=== PATIENT | female | born 2005 | race Caucasian/White ===

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

== ENCOUNTER 2025-04-07 13:42 | Emergency (ER) | payer OTHER, SELFPAY ==
[2025-04-07 13:50] VITALS: BP 124/80; PULSE 72; RESP 16; TEMP 36.4; O2SAT 98
--- OUTSIDE RECORDS SUMMARY | 2025-04-07 14:45 | XMS_ITS | Clinical Summary ---
Author Organization [facility] Address [address] [place] [address] Phone Care Team Providers Care Advance Agent Name Role Phone Jerod Sanchez MD, Kristin Primary Care Provider [phone] Allergies No known active allergies Medications triamcinolone [...] 2-dose series) 12/24/2022 06/26/2022 Influenza Immunization (#1) 2025 SARS-COV-2 Immunization ( season) 2025 Respiratory Syncytial Virus (RSV) Immunization (Adult) [...] age to complete this topic Insurance MEDICAID [facility] MEDICAID [facility] [employer] Care Teams Advance Agent Relationship Specialty Start Date End Date Eden Newsome MD [address] [address] PCP - General Pediatrics 03/19/22
--- OUTSIDE RECORDS SUMMARY | 2025-04-07 16:25 | XMS_ITS | Clinical Summary ---
Author Organization [facility] Address [address] [place] [address] Phone Care Team Providers Care Mine Car Mechanic Name Role Phone Jerod Sanchez MD, Kristin Primary Care Provider [phone] Allergies No known active allergies Medications triamcinolone [...] age to complete this topic Insurance MEDICAID [facility] MEDICAID [facility] [employer] [facility] [employer] Care Teams Mine Car Mechanic Relationship Specialty Start Date End Date Eden Newsome MD [address] [place] [address] [address] PCP - General Pediatrics 03/19/22
--- NOTE | 2025-04-28 18:08 | ED.EYEPROB ---
HPI - Eye Problem General Chief complaint: Eye Problems Stated complaint: eye issues Time Seen by Provider: 04/07/25 15:49 History of Present Illness HPI Narrative: Patient presents with intermittent chronic pain of the skin around her left eye that she wanted to get ?checked out? today since she was bringing her son in for evaluation. Patient reports trauma to this part of her face several years prior and has had intermittent burning since then. She has no changes in vision, no rash, no visible skin changes. She denies any recent trauma to eye. Patient has a history of chronic migraines and is followed by Neurology. No acute changes to her symptoms. She is otherwise healthy. Immunizations up-to-date. Related Data Home Medications ?Medication ?Instructions ?Recorded ?Confirmed ?Last Taken ?Type epinephrine 0.3 mg/0.3 mL 0.3 mg subcut Q4H PRN anaphylaxis 03/18/24 03/09/25 Unknown History injection, auto-injector Allergies Allergy/AdvReac Type Severity Reaction Status Date / Time omalizumab (From Xolair) Allergy Severe Swelling Verified 04/07/25 13:44 Review of Systems Review of Systems: All systems reviewed & are unremarkable except as noted in HPI and below (HPI) PMFSH Past Medical History Medical History Normal vaginal delivery of first 11/10/24 Suppression of menses Migraine Anxiety Allergies Surgical History Surgical History Status post surgical removal of malignant neoplasm of skin Family History Family History Father Alcohol abuse Depression Heart disease Hypertension Sibling Alcohol abuse Asthma Depression Diabetes mellitus Thyroid disorder Grandparent Alcohol abuse Asthma Depression Diabetes mellitus Heart disease Hypertension Cerebrovascular accident Breast cancer Stomach cancer Mother Asthma Heart disease Hypertension Lung cancer Basal cell carcinoma Social History Social History Smoking status: Current some day smoker Tobacco type: e-cigarettes/vaping Alcohol intake: former Alcohol use details: rarely Substance use: current Substance use type: marijuana Lack of Transportation: No Lack of Food: Never True Current Housing: I Have Housing Concerned About Future Housing: No Difficulty Paying Gas/Electric Bills: No Difficulty Paying for Meds: Decline to Answer Currently Unemployed: YES Education: Grade School Difficulty w/ Childcare or Family Care: No Living arrangements: with family Occupation/Education: unemployed Gender identity (if verbalized by the patient): Female Sexual Orientation (if Verbalized by the Patient): pansexual Spiritual care concerns: No Exam Narrative: GENERAL: No acute distress. Well-appearing. Well-nourished. Alert and active. HEAD: Normocephalic, atraumatic. EYES: Pupils equal, round reactive to light. Extraocular movements intact. Conjunctivae without redness or drainage. EARS: Tympanic membranes without erythema. TM landmarks intact with good light reflex. Ear canals without discharge. NOSE: Nares patent. No nasal discharge. MOUTH: Mucous membranes moist. No lesions. No cyanosis. Dentition grossly normal. THROAT: Oropharynx without signs erythema, exudates or lesions. Tonsils not enlarged. RESPIRATORY: Airway patent. Chest clear to auscultation bilaterally. Breath sounds equal bilaterally. No retractions. CARDIOVASCULAR: Regular rate and rhythm. No murmurs, rubs, gallops, or clicks. Capillary refill <2 seconds. GASTROINTESTINAL: Soft, nontender, non-distended MUSCULOSKELETAL: Range of motion grossly normal in all four extremities. Strength grossly normal in all four extremities. No edema. SKIN: Color normal. Warm and dry. No rashes. NEURO: Alert. Motor intact in all extremities. Muscle tone normal. PSYCHIATRIC: Age appropriate. Responds appropriately to care-taker and providers. Course Vital Signs Vital signs: Vital Signs Temperature 97.6 F 04/07/25 13:50 Pulse Rate 72 04/07/25 13:50 Respiratory Rate 16 04/07/25 13:50 Blood Pressure 124/80 04/07/25 13:50 Pulse Oximetry 98 04/07/25 13:50 Temperature 97.6 F 04/07/25 13:50 Pulse Rate 72 04/07/25 13:50 Respiratory Rate 16 04/07/25 13:50 Blood Pressure 124/80 04/07/25 13:50 Pulse Oximetry 98 04/07/25 13:50 [facility] MDM Narrative Medical decision making narrative: 19-year-old female presents with chronic intermittent superficial pain around skin of left eye after local trauma to that area. She denies any associated pain of eye, vision changes, pain with ocular movements, skin changes. Suspect intermittent burning sensation when touched secondary to minor superficial cutaneous nerve damage during trauma. No red flag symptoms for intracranial or intra-ocular injury or pathology at this time. Patient to follow-up with neurologist. The patient is stable at time of discharge the clinical impression was discussed and the parent guardian was given the opportunity to ask questions, which were addressed as completely as possible given the information available at present. Anticipatory guidance and return to care precautions were discussed and the importance of primary care follow-up was stressed and encouraged. The guardian voiced understanding of the plan, indications to return, and the need for follow-up. Differential Diagnosis Differential Diagnosis: Nerve pain Discharge Plan Discharge Clinical Impression: Chronic facial pain Patient Disposition: Home Condition: Stable Additional Instructions: You were seen today for pain in the cheek that has been present for over a year. Your exam today was normal. It is possible you have a minor injury to the nerves in the skin of the face following trauma. Please follow up with your doctor CHANEL. Return to ER if symptoms worsen or you develop any numbness, weakness, facial drooping, eye pain, difficulty speaking, or other symptoms. Patient Language: Spanish Prescriptions: No Action drospirenone-ethinyl estradiol [DIANNE (28)] 3-0.02 mg tablet 1 tablet PO DAILY Qty: 84 3RF epinephrine 0.3 mg/0.3 mL auto-injector 0.3 mg subcut Q4H PRN (Reason: anaphylaxis) Follow-up/Referrals: PHYSICIAN,[employer] P[employer]ER MACHINE OPERATOR [Primary Care Provider, Internal Medicine]
== END 2025-04-07 16:50 | disposition home or self-care (01) ==
LOC: ANHED 16:24
PROVIDERS: Emergency Provider Student in an Organized Health Care Education/Training Program
DX: R51.9 Headache, unspecified (principal); G89.21 Chronic pain due to trauma; F17.290 Nicotine dependence, other tobacco product, uncomplicated; Z79.3 Long term (current) use of hormonal contraceptives
CPT/HCPCS: 99283

== ENCOUNTER 2025-05-23 14:44 | Emergency (ER) | payer OTHER, SELFPAY ==
--- NOTE | ~2025-05-23 | XR_ITS ---
EXAMINATION: XR chest 2V DATE: 05/23/2025 15:16 INDICATION: Hemoptysis. TECHNIQUE: Frontal and lateral views of the chest were obtained. COMPARISON: CTA chest dated 11/13/2024. FINDINGS: Heart size is normal. Lungs are clear of acute process. Audrey and mediastinum are normal. IMPRESSION: 1. No acute findings. Reviewed, dictated and finalized at location T. LABORER IMPRESSION: 1. No acute findings.
[2025-05-23 14:47] VITALS: BP 134/75; PULSE 105; RESP 20; TEMP 36.2; O2SAT 99
--- NOTE | 2025-05-23 14:49 | ED_ITS ---
HPI - URI/Sore Throat General Chief Complaint: Upper Respiratory Infection Stated Complaint: URI sx Time Seen by Provider: 05/23/25 14:49 Focused HPI: Patient is a 19-year-old female who presents to the ER with a 2 day history of chest discomfort, jaw/neck pain, congestion, hemoptysis, and fever. She reports she has not been taking any medication to help relieve her symptoms, as I do not have access to that stuff. Patient denies any medical history relevant to this ER visit. She denies any shortness of breath, wheezing, or difficulty swallowing. GENERAL: Well-appearing, well-nourished, and in no acute distress. HEAD: Normocephalic, atraumatic. CHEST: Clear to auscultation. ?No respiratory distress. HEART: Regular rate and rhythm.? NEURO: ?Alert and oriented x3. Patient screened in triage and initial orders placed.? ?Additional care and disposition to be based upon?diagnostic testing and treatment. Related Data Home Medications ?Medication ?Instructions ?Recorded ?Confirmed ?Last Taken ?Type epinephrine 0.3 mg/0.3 mL 0.3 mg subcut Q4H PRN anaphy laxis 03/18/24 03/09/25 Unknown History injection, auto-injector Allergies Allergy/AdvReac Type Severity Reaction Status Date / Time omalizumab (From Xolair) Allergy Severe Swelling Verified 04/07/25 13:44 PMFSH Past Medical History Medical History Normal vaginal delivery of first 11/10/24 Suppression of menses Migraine Anxiety Allergies Surgical History Surgical History Status post surgical removal of malignant neoplasm of skin Family History Family History Father Alcohol abuse Depression Heart disease Hypertension Sibling Alcohol abuse Asthma Depression Diabetes mellitus Thyroid disorder Grandparent Alcohol abuse Asthma Depression Diabetes mellitus Heart disease Hypertension Cerebrovascular accident Breast cancer Stomach cancer Mother Asthma Heart disease Hypertension Lung cancer Basal cell carcinoma Social History Social History Smoking status: Current some day smoker Tobacco type: e-cigarettes/vaping Alcohol intake: former Alcohol use details: rarely Substance use: current Substance use type: marijuana Lack of Transportation: No Lack of Food: Never True Current Housing: I Have Housing Concerned About Future Housing: No Difficulty Paying Gas/Electric Bills: No Difficulty Paying for Meds: Decline to Answer Currently Unemployed: YES Education: Grade School Difficulty w/ Childcare or Family Care: No Living arrangements: with family Occupation/Education: unemployed Gender identity (if verbalized by the patient): Female Sexual Orientation (if Verbalized by the Patient): pansexual Spiritual care concerns: No Course Vital Signs Vital signs: Vital Signs Temperature 36.2 C L 05/23/25 14:47 Pulse Rate 105 H 05/23/25 14:47 Respiratory Rate 20 05/23/25 14:47 Blood Pressure 134/75 05/23/25 14:47 Pulse Oximetry 99 05/23/25 14:47 Temperature 36.2 C L 05/23/25 14:47 Pulse Rate 105 H 05/23/25 14:47 Respiratory Rate 20 05/23/25 14:47 Blood Pressure 134/75 05/23/25 14:47 Pulse Oximetry 99 05/23/25 14:47 MDM Differential Diagnosis Differential Diagnosis: Upper respiratory infection, fever, COVID, flu Imaging Data Radiologist's impression: ITS Impressions Chest X-Ray 05/23/25 15:17 IMPRESSION: 1. No acute findings. Discharge Plan Discharge Clinical Impression: Upper respiratory infection Patient Disposition: Elopement After Seen by Prov Patient Language: French Prescriptions: No Action drospirenone-ethinyl estradiol [DIANNE (28)] 3-0.02 mg tablet 1 tablet PO DAILY Qty: 84 3RF epinephrine 0.3 mg/0.3 mL auto-injector 0.3 mg subcut Q4H PRN (Reason: anaphylaxis) Follow-up/Referrals: PHYSICIAN,HARDWARE PRESS OPERATOR [Primary Care Provider, Internal Medicine]
== END 2025-05-23 17:25 | disposition left against medical advice (07) ==
PROVIDERS: Emergency Provider Registered Nurse
DX: J06.9 Acute upper respiratory infection, unspecified (principal); F17.290 Nicotine dependence, other tobacco product, uncomplicated
CPT/HCPCS: 71046; 99283